=== PATIENT | female | born 1990 | race Caucasian/White ===

== ENCOUNTER 2025-01-01 07:24 | Inpatient (IN) | payer OTHER, SELFPAY ==
[2025-01-01 07:37] VITALS: BP 119/71; BMI 32.0
[2025-01-01 08:43] LABS: % Basophils 0.3 % (0-2); % Eosinophils 1.4 % (0-6); % Immature Granulocytes 1.1 % (0-0.5); % Lymphocytes 17.4 % (20.5-51.1); % Monocytes 6.7 % (1.7-9.3); % Neutrophils 73.1 % (42.2-75.2); Absolute Eosinophils 0.2 10^3/uL (0-0.7); Absolute Immature Granulocytes 0.1 10^3/uL (0-0.05); Absolute Lymphocytes 1.9 10^3/uL (1.2-3.4); Absolute Monocytes 0.7 10^3/uL (0.1-0.6); Absolute Neutrophils 8.1 10^3/uL (1.4-6.5); Hematocrit 40.1 % (37.0-47.0); Hemoglobin 13.9 g/dL (12.0-16.0); Mean Corp Hgb Conc. 34.7 g/dL (33.0-37.0); Mean Corpuscular Hgb 32.7 pg (27.0-31.0); Mean Corpuscular Volume 94.4 fL (81.0-99.0); Mean Platelet Volume 8.8 fL (7.4-10.4); Nucleated Red Blood Cells % 0 %; Platelet Count 277 10^3/uL (130-400); Red Blood Cell Count 4.25 10^6/uL (4.20-5.40); Red Cell Dist. Width 12.3 % (11.5-14.5); White Blood Cell Count 11.1 10^3/uL (4.8-10.8)
[2025-01-01] MEDS: CYTOTEC 25 MICROGRAM VAG (11:17)
[2025-01-01] MEDS: CYTOTEC 50 MICROGRAM PO (15:42)
[2025-01-01] MEDS: KEPPRA 2500 MG PO (19:43)
[2025-01-01] MEDS: FENTANYL/BUPIVACAINE 100 EPIDURAL (21:43)
[2025-01-01] MEDS: SUBLIMAZE 100 MCG EPIDURAL (21:46)
[2025-01-02] MEDS: MOTRIN 600 MG PO ×3 (04:03→16:29)
[2025-01-02 05:34] LABS: Hematocrit 37.4 % (37.0-47.0)
[2025-01-02] MEDS: KEPPRA 2500 MG PO ×2 (07:06→20:09)
[2025-01-02] MEDS: PRENATAL PLUS 1 TABLET PO (07:06)
[2025-01-02] MEDS: TYLENOL 650 MG PO ×3 (07:07→17:57)
[2025-01-02] MEDS: SENOKOT-S 1 TABLET PO (10:16)
[2025-01-02 10:50] LABS: Syphilis/T. pallidum Ab Reflex Negative (Negative)
[2025-01-03] MEDS: TYLENOL 650 MG PO ×2 (00:33→06:45)
[2025-01-03] MEDS: MOTRIN 600 MG PO ×2 (00:33→06:44)
--- NOTE | 2025-01-03 04:23 | DOWNTIME ---
There was a [employer] Downtime on 01/03/2025 from 0100 to 01/04/2024 at 0420 . Downtime documentation of patient's care, including medication administrations, has been reconciled in the electronic record per guidelines. Refer to the
patient's paper chart under the miscellaneous tab to see printed paper medication records and downtime forms.
[2025-01-03] MEDS: KEPPRA 2500 MG PO (06:51)
[2025-01-03] MEDS: PRENATAL PLUS 1 TABLET PO (06:51)
== END 2025-01-03 11:14 | disposition home or self-care (01) | DRG 806 ==
LOC: LDRP 07:24
PROVIDERS: Student in an Organized Health Care Education/Training Program; ADMITTING PHYSICIAN Obstetrics & Gynecology
PROC: 10907ZC Drainage of Amniotic Fluid, Therapeutic from Products of Conception, Via Natural or Artificial Opening (ICD-10-PCS; 2025-01-01)
PROC: 10E0XZZ Delivery of Products of Conception, External Approach (ICD-10-PCS; 2025-01-01)
PROC: 3E0P7VZ Introduction of Hormone into Female Reproductive, Via Natural or Artificial Opening (ICD-10-PCS; 2025-01-01)
DX: O48.0 Post-term pregnancy (principal); O99.354 Diseases of the nervous system complicating childbirth; Z37.0 Single live birth; Z3A.40 40 weeks gestation of pregnancy; O76 Abnormality in fetal heart rate and rhythm complicating labor and delivery; O69.82X0 Labor and delivery complicated by other cord entanglement, without compression, not applicable or unspecified; G40.909 Epilepsy, unspecified, not intractable, without status epilepticus
CPT/HCPCS: 36415; 85014; 85018; 85025; 86780; 86850; 86900; 86901